=== PATIENT | female | born 1985 | race Caucasian/White ===

== ENCOUNTER → 2018-02-09 | Day surgery (SDC) | payer OTHER ==
[~2018-02-09] MED LIST: MARI PO; PERCOCET 5-3251 EACH PO
--- NOTE | 2018-02-09 08:24 | Operative Report ---
Operative/Inv Procedure Report Surgery Date: 02/09/18 Name of Procedure: Excisional biopsy left breast mass Pre-Operative Diagnosis: Left breast mass Post-Operative Diagnosis: Same pending pathology Estimated Blood Loss: scant Surgeon/Kidney Trimmer: Arnie Torres MD Anesthesia: moderate sedation Specimens: Left breast biopsy Complications: None Operative/Procedure Note Note: The patient was placed on the operating table in the supine position. After a timeout was taken The left breast was prepped and draped in the usual sterile manner. After adequate IV sedation was obtained 0.5% Marcaine was locally infiltrated over the breast mass. An incision was made and carried down through the skin and subcutaneous tissue. Bleeding points were controlled with the electrocautery device. The mass in question was excised with grossly normal margins using the electrocautery device for hemostasis. The cavity was inspected and hemostasis was noted to be good. The incision was closed in layers with 3-0 Vicryl subcutaneous closure and 5-0 Vicryl subcuticular skin closure. Steri-Strips and a sterile dressing were applied. The patient tolerated the procedure well and was taken back to same day surgery center with stable vital signs.
== END ==
LOC: STS 01:22
DX: N60.82 Other benign mammary dysplasias of left breast (principal); F17.200 Nicotine dependence, unspecified, uncomplicated
CPT/HCPCS: J1885; J2250; J3490